=== PATIENT | male | born 1980 | race Caucasian/White ===

== ENCOUNTER 2020-12-13 17:36 | Emergency (ER) | payer MEDICAID, OTHER ==
[~2020-12-13] VITALS: Ht 188 cm; Wt 188.6 kg
[~2020-12-13 17:36] MED LIST: ASPI-1079; ATOR10TA
[2020-12-13] MEDS ORDERED: XAR15 GT (17:46)
[2020-12-13] MEDS ORDERED: HEPARIN 5000 UNITS/ML VIAL IV PRN ×2 (18:15)
[2020-12-13] MEDS ORDERED: HEPARIN 25,000 UNITS PREMIX 250 ML IV PRN (18:15)
[2020-12-13] MEDS ORDERED: HEPARIN 5000 UNITS/ML VIAL IV SCH (18:15)
[2020-12-13] MEDS ORDERED: KETOROLAC 30MG/ML VIAL IV ONE (19:00)
[2020-12-13] MEDS ORDERED: TRAMADOL 50MG TABLET PO ONE (19:00)
[2020-12-13 19:21] LABS: BASOPHILS % 0.5 % (0.0-2.0); EOSINOPHILS % 1.1 % (0.0-5.0); HEMATOCRIT. 46.8 % (42.0-52.0); HEMOGLOBIN. 15.7 g/dL (14.0-18.0); LYMPHOCYTES % 23.3 % (20.0-50.0); MEAN CORPUSCULAR HEMOGLOBIN 28.6 pg (28.0-32.0); MEAN PLATELET VOLUME 10.4 fl (7.4-10.4); MONOCYTES % 8.2 % (2.0-8.0); NEUTROPHILS % 66.9 % (40.0-76.0); PLATELET 151 x1000/uL (130-400); RED CELL DISTRIBUTION WIDTH 16.2 % (11.6-14.6)
[2020-12-13 19:27] LABS: CHLORIDE 108 mEq/L (98-107)
[2020-12-13 19:32] LABS: D-DIMER 2.69 mg/L FEU (<0.50); PARTIAL THROMBOPLASTIN TIME 24.4 sec (23.4-31.0); PROTHROMBIN TIME 10.8 sec (9.6-11.0)
[2020-12-13] MEDS ORDERED: IOHEXOL-350 100 ML BOTTLE ONE (20:53)
[2020-12-13] MEDS ORDERED: IBUP-2030 MT (22:55)
[2020-12-13] MEDS ORDERED: TRAM50TA3 MT (22:57)
[2020-12-13] MEDS ORDERED: HYDROCODONE/ACETAMINOPHEN 10/325MG TABLET PO ONE (23:00)
[2020-12-13 23:43] VITALS: BP 148/86
== END 2020-12-14 01:20 | disposition home or self-care (01) ==
LOC: ER 17:36
DX: I80.01 Phlebitis and thrombophlebitis of superficial vessels of right lower extremity (principal); E78.00 Pure hypercholesterolemia, unspecified
CPT/HCPCS: 36415; 71045; 71275; 80053; 83880; 84484; 85025; 85379; 85610; 85730; 93005; 93970; 96374; 99285; J1885; Q9967; Z7610

== ENCOUNTER 2023-03-13 16:52 | Inpatient (IN) | payer MEDICAID, OTHER ==
[~2023-03-13] VITALS: Ht 185.4 cm; Wt 189.6 kg
[~2023-03-13 16:52] MED LIST changes: -ASPI-1079; +ASPI-1079 PO; +IBUP-2030 MT; +TRAM50TA3 MT; +XAR15 PO
[2023-03-13 19:13] LABS: BASOPHILS % 0.3 % (0.0-2.0); EOSINOPHILS % 0.3 % (0.0-5.0); HEMATOCRIT. 45.5 % (42.0-52.0); HEMOGLOBIN. 15.2 g/dL (14.0-18.0); LYMPHOCYTES % 18.6 % (20.0-50.0); MEAN CORPUSCULAR HEMOGLOBIN 28.9 pg (28.0-32.0); MEAN CORPUSCULAR HGB CONC 33.5 g/dL (31.0-37.0); MEAN CORPUSCULAR VOLUME 86.3 fL (80.0-94.0); MEAN PLATELET VOLUME 10.6 fl (7.4-10.4); MONOCYTES % 5.8 % (2.0-8.0); PLATELET 171 x1000/uL (130-400); RED BLOOD CELL COUNT 5.27 mill/uL (4.7-6.1); RED CELL DISTRIBUTION WIDTH 15.2 % (11.6-14.6); WHITE BLOOD COUNT 7.2 x1000/uL (4.5-11.0)
[2023-03-13 19:25] LABS: CHLORIDE 106 mEq/L (98-107); INDEX HEMOLYSI 1 (1-3); INDEX ICTERIC 1 (1-4); INDEX LIPEMIC 1 (1-3); POTASSIUM 3.9 mEq/L (3.5-5.1); SODIUM 138 mEq/L (136-145)
[2023-03-13 19:34] LABS: ALANINE AMINOTRANSFERASE 173 IU/L (13-61); ALBUMIN 3.7 g/dL (3.4-5.0); ASPARTATE AMINOTRANSFERASE 131 IU/L (15-37); BILIRUBIN TOTAL 0.8 mg/dL (0.1-1.0); CALCIUM 8.9 mg/dL (8.5-10.1); CARBON DIOXIDE 27 mEq/L (21-32); CREATININE 0.9 mg/dL (0.6-1.3); GLUCOSE 103 mg/dL (70-105); PROTEIN TOTAL 7.5 g/dL (6.0-8.3); UREA NITROGEN BLOOD 13 mg/dL (7-21)
[2023-03-14 00:31] VITALS: BP 127/72; PULSE 75; RESP 18; TEMP 97.6
[2023-03-14] MEDS: OMEPRAZOLE 20MG CAPSULE EXTENDED RELEASE PO SCH (07:10)
[2023-03-14 08:00] VITALS: BP 132/71; PULSE 90; RESP 19; TEMP 97.6
[2023-03-14 08:07] LABS: BASOPHILS % 0.4 % (0.0-2.0); EOSINOPHILS % 0.7 % (0.0-5.0); HEMATOCRIT. 42.6 % (42.0-52.0); HEMOGLOBIN. 14.8 g/dL (14.0-18.0); LYMPHOCYTES % 23.9 % (20.0-50.0); MEAN CORPUSCULAR HEMOGLOBIN 29.8 pg (28.0-32.0); MEAN CORPUSCULAR HGB CONC 34.7 g/dL (31.0-37.0); MONOCYTES % 7.2 % (2.0-8.0); NEUTROPHILS % 67.8 % (40.0-76.0); PLATELET 137 x1000/uL (130-400); RED BLOOD CELL COUNT 4.95 mill/uL (4.7-6.1); RED CELL DISTRIBUTION WIDTH 14.9 % (11.6-14.6); WHITE BLOOD COUNT 6.8 x1000/uL (4.5-11.0)
[2023-03-14 08:27] LABS: CHLORIDE 106 mEq/L (98-107); INDEX HEMOLYSI 1 (1-3); INDEX ICTERIC 1 (1-4); INDEX LIPEMIC 1 (1-3); POTASSIUM 3.7 mEq/L (3.5-5.1); SODIUM 138 mEq/L (136-145)
[2023-03-14 08:32] LABS: CALCIUM 8.8 mg/dL (8.5-10.1); CARBON DIOXIDE 26 mEq/L (21-32); CHOLESTEROL 185 mg/dL (<200); CREATININE 0.9 mg/dL (0.6-1.3); GLUCOSE 118 mg/dL (70-105); HDL CHOLESTEROL 38 mg/dL (40-59); LDL CHOLESTEROL 133 mg/dL (5-100); TRIGLYCERIDE 82 mg/dL (0-150); UREA NITROGEN BLOOD 12 mg/dL (7-21)
[2023-03-14] MEDS: ASPIRIN 81MG TABLET PO SCH (08:40)
[2023-03-14] MEDS: APIXABAN 5 MG TABLET PO SCH ×2 (08:40→16:23)
[2023-03-14 12:00] VITALS: BP 112/69; PULSE 83; RESP 18; TEMP 96.9
[2023-03-14] MEDS ORDERED: ATOR20TA65 PO (15:39)
[2023-03-14] MEDS ORDERED: OMEP20CA14 PO (15:39)
[2023-03-14 16:00] VITALS: BP 145/89; PULSE 89; RESP 18; TEMP 96.8
[2023-03-14] MEDS ORDERED: RIVAROXABAN 15 MG TABLET PO ONE (17:00)
[2023-03-14] MEDS ORDERED: APIX5TAB MT (17:37)
[2023-03-14] MEDS ORDERED: SEMA0.25 SQ (17:37)
[2023-03-14 18:51] LABS: HEPATITIS B SURFACE ANTIGEN NEGATIVE
[2023-03-14 20:00] VITALS: BP 115/57; PULSE 88; RESP 20; TEMP 97.9
[2023-03-14 20:41] LABS: HEPATITIS C VIR.AB 0.11 INDEXVAL (0.00-0.80)
[2023-03-14] MEDS ORDERED: ATORVASTATIN CALCIUM 10MG TABLET PO SCH (21:00)
[2023-03-15] VITALS: BP 120/67; PULSE 90; RESP 18; TEMP 98
[2023-03-15 04:00] VITALS: BP 127/71; PULSE 74; RESP 20; TEMP 97.4
[2023-03-15] MEDS: OMEPRAZOLE 20MG CAPSULE EXTENDED RELEASE PO SCH (06:23)
[2023-03-15 08:00] VITALS: BP 119/74; PULSE 80; RESP 20; TEMP 98.2
[2023-03-15] MEDS: APIXABAN 5 MG TABLET PO SCH (09:41)
[2023-03-15] MEDS: ASPIRIN 81MG TABLET PO SCH (09:41)
[2023-03-15 12:00] VITALS: BP 119/81; PULSE 74; RESP 20; TEMP 99.3
[2023-03-15 16:34] VITALS: BP 137/78; PULSE 83; TEMP 98; O2SAT 98
[2023-03-16] MEDS ORDERED: FAMOTIDINE 20MG TABLET PO SCH (09:00)
== END 2023-03-15 17:45 | disposition home or self-care (01) | DRG 47 ==
LOC: ER 16:52 → MICUSO 20:59 → EDBEDREQTM 21:18 → EDBEDREQ 21:18 → 8WST 23:39
PROVIDERS: ADMIT Internal Medicine; ATTEND Internal Medicine
PROC: 5A09357 Assistance with Respiratory Ventilation, Less than 24 Consecutive Hours, Continuous Positive Airway Pressure (ICD-10-PCS; principal; 2023-03-14)
PROC: 5A09357 Assistance with Respiratory Ventilation, Less than 24 Consecutive Hours, Continuous Positive Airway Pressure (ICD-10-PCS; 2023-03-15)
DX: G45.9 Transient cerebral ischemic attack, unspecified (principal); Z68.43 Body mass index [BMI] 50.0-59.9, adult; I16.0 Hypertensive urgency; E66.01 Morbid (severe) obesity due to excess calories; I10 Essential (primary) hypertension; E78.5 Hyperlipidemia, unspecified; G89.29 Other chronic pain; R74.01 Elevation of levels of liver transaminase levels; Z86.73 Personal history of transient ischemic attack (TIA), and cerebral infarction without residual deficits; Z86.718 Personal history of other venous thrombosis and embolism; Z86.711 Personal history of pulmonary embolism
CPT/HCPCS: 36415; 70460; 80048; 80053; 80061; 85025; 86803; 87340; 93005; 93880; 93970; 97162; 97530; 99285

== ENCOUNTER 2025-05-01 14:20 | Emergency (ER) | payer OTHER ==
[~2025-05-01] VITALS: Ht 188 cm; Wt 180.0 kg
[~2025-05-01 14:20] MED LIST changes: +APIX5TAB MT; -ATOR10TA; +ATOR20TA65 PO; -IBUP-2030 MT; +OMEP20CA14 PO; +SEMA0.25 SQ; -TRAM50TA3 MT; -XAR15 PO
[2025-05-01 14:27] VITALS: O2SAT 97
[2025-05-01 15:18] LABS: BASOPHILS % 0.4 % (0.0-2.0); EOSINOPHILS % 0.7 % (0.0-5.0); HEMATOCRIT. 45.6 % (42.0-52.0); HEMOGLOBIN. 15.0 g/dL (14.0-18.0); LYMPHOCYTES % 22.5 % (20.0-50.0); MEAN PLATELET VOLUME 11.5 fl (7.4-10.4); MONOCYTES % 8.1 % (2.0-8.0); NEUTROPHILS % 68.3 % (40.0-76.0); PLATELET 124 x1000/uL (130-400); RED BLOOD CELL COUNT 5.20 mill/uL (4.7-6.1); RED CELL DISTRIBUTION WIDTH 15.4 % (11.6-14.6)
[2025-05-01 15:19] LABS: CREATININE 0.8 mg/dL (0.6-1.3)
[2025-05-01 15:20] LABS: TROPONIN I HIGH SENSITIVITY < 4 ng/L (3.0-53); UREA NITROGEN BLOOD 6 mg/dL (9-23)
[2025-05-01 15:21] LABS: ASPARTATE AMINOTRANSFERASE 143 IU/L (<34)
[2025-05-01 15:22] LABS: BILIRUBIN DIRECT 0.4 mg/dL (<=3.0); BILIRUBIN TOTAL 1.1 mg/dL (0.1-1.0); PROTEIN TOTAL 6.9 g/dL (6.0-8.3)
[2025-05-01 18:11] VITALS: BP 147/89; PULSE 74; RESP 20; TEMP 36.7; O2SAT 97
[2025-05-01] MEDS ORDERED: IOHEXOL-300 100 ML BOTTLE ONE (23:05)
== END 2025-05-01 18:20 | disposition home or self-care (01) ==
LOC: ER 14:20 → EDBEDREQ 16:39 → ER 18:20 → CMPBEDREQ 05-02 07:57
DX: I82.403 Acute embolism and thrombosis of unspecified deep veins of lower extremity, bilateral (principal); E66.01 Morbid (severe) obesity due to excess calories; Z86.73 Personal history of transient ischemic attack (TIA), and cerebral infarction without residual deficits; Z86.718 Personal history of other venous thrombosis and embolism; Z79.899 Other long term (current) drug therapy; Z79.82 Long term (current) use of aspirin; Z79.01 Long term (current) use of anticoagulants; Z68.43 Body mass index [BMI] 50.0-59.9, adult
CPT/HCPCS: 99285; 93970; 71275; 71045; 80076; 80048; 83880; 83605; 83735; 85025; 85379; 84484; 36415; 93005; Q9967